=== PATIENT | female | born 1990 | race African-American/Black ===

== ENCOUNTER 2024-01-04 12:48 | Emergency (ER) | payer SELFPAY ==
[2024-01-04] MEDS ORDERED: Ipratropium/Albuterol 3 ML NEB ONE (14:10)
[2024-01-04] MEDS ORDERED: predniSONE 20 MG TAB ONE (14:21)
== END 2024-01-04 15:40 | disposition home or self-care (01) ==
LOC: CSHERS 12:48
DX: J45.901 Unspecified asthma with (acute) exacerbation (principal); I10 Essential (primary) hypertension; E78.00 Pure hypercholesterolemia, unspecified
CPT/HCPCS: 71045; 94640; J7512; J7620

== ENCOUNTER 2024-11-20 22:35 | Emergency (ER) | payer BC | END 2024-11-21 00:24 | disposition home or self-care (01) | LOC: CSHERS 22:35 | DX: K04.7 Periapical abscess without sinus (principal); I10 Essential (primary) hypertension | CPT/HCPCS: 99282 ==